=== PATIENT | female | born 1970 | race Caucasian/White ===

== ENCOUNTER 2018-01-27 08:17 | Day surgery (SDC) | payer OTHER ==
[2018-01-20 10:32] VITALS: BMI 27.3
[2018-01-27] MEDS ORDERED: PROPOFOL 20 ML ONE ×3 (09:00)
[2018-01-27 09:54] VITALS: BP 107/64; PULSE 67; TEMP 98
== END 2018-01-27 10:15 | disposition home or self-care (01) ==
LOC: FASU-ENDO 08:17
PROVIDERS: ATTEND Internal Medicine Gastroenterology
PROC: 0DJD8ZZ Inspection of Lower Intestinal Tract, Via Natural or Artificial Opening Endoscopic (ICD-10-PCS; principal; 2018-01-27 09:02)
DX: R10.9 Unspecified abdominal pain (principal); R93.5 Abnormal findings on diagnostic imaging of other abdominal regions, including retroperitoneum
CPT/HCPCS: 84703

== ENCOUNTER 2020-08-05 08:32 | Day surgery (SDC) | payer OTHER ==
[2020-08-01 15:03] VITALS: BMI 27.2
[2020-08-05 09:44] VITALS: TEMP 98.2
[2020-08-05 09:53] VITALS: BP 122/76; PULSE 82
== END 2020-08-05 09:56 | disposition home or self-care (01) ==
LOC: FASU-ENDO 08:32
PROVIDERS: ATTEND Internal Medicine Gastroenterology
PROC: 0DB68ZX Excision of Stomach, Via Natural or Artificial Opening Endoscopic, Diagnostic (ICD-10-PCS; 2020-08-05)
PROC: 0DB98ZX Excision of Duodenum, Via Natural or Artificial Opening Endoscopic, Diagnostic (ICD-10-PCS; principal; 2020-08-05 09:11)
DX: K29.50 Unspecified chronic gastritis without bleeding (principal); R10.13 Epigastric pain
CPT/HCPCS: 84703; 88305-TC; 88342-TC